=== PATIENT | female | born 1985 | race Caucasian/White ===

== ENCOUNTER 2025-06-18 10:11 | Emergency (ER) | payer SELFPAY ==
[2025-06-18 10:15] VITALS: BP 119/74
--- NOTE | 2025-06-18 10:32 | ED.GENMED ---
History of Present Illness
<Phyllis Segal PA-C - Last Filed: 06/18/25 17:09>
General
Chief Complaint: Back Pain
Source: patient
Exam Limitations: none
Time Seen by Provider: 06/18/25 10:18
History of Present Illness
History of Present Illness:
40yoF with a history of lupus on hydroxychloroquine presenting for evaluation of bilateral flank pain. Patient started to experience UTI symptoms about 2 days ago with urinary frequency and pain after urination. Last night, she developed pain in
both of her flank/lower posterior rib areas. No reported trauma. She has been taking Azo for her urinary symptoms but otherwise has not been taking [id number] medications. No pleuritic pain. She denies any fevers, chills, abdominal pain,
vaginal discharge. No concern for STDs. She denies any history of lupus nephritis, pyelonephritis or resistant UTIs.
Past History
<Phyllis Segal PA-C - Last Filed: 06/18/25 17:09>
Past History
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
ED Past Surgical History: Gynecological (Ovarian cyst removed)
Social History
Tobacco: Former smoker (cigarete smoker now Electronic cig.)
Alcohol: Occasional
Personal: Single
Living: alone
Phy Exam
<Phyllis Segal PA-C - Last Filed: 06/18/25 17:09>
General Physical Exam
General Presentation: well appearing and no apparent distress
General Skin: warm and dry
General Habitus: normal
General Mental: alert
ENT Exam
ENT Exam: normocephalic
Pulmonary Exam
Pulmonary Exam: lungs clear, no respiratory distress, no rales, no crackles, no rhonchi and no wheezing
Gastrointestinal Exam
Gastrointestinal Exam: non tender, soft, non distended and no cva tenderness
Neurological Exam
Neurological Exam: alert
[place] Coma Scale
Eye Opening: Spontaneous
Verbal Response: Oriented
Motor Response: Obeys Commands
GCS Total Score: 15
Musculoskeletal Exam
Musculoskeletal Exam: other (+Tenderness to thoracic region bilaterally. No skin changes.)
Skin Exam
Skin Exam: normal color and warm/dry
Psychiatric Exam
Psychiatric Exam: normal mood/affect
<Rashel Castro PA-C - Last Filed: 06/20/25 06:50>
[place] Coma Scale
GCS Total Score: 15
Course
<Phyllis Segal PA-C - Last Filed: 06/18/25 17:09>
Orders/Labs/Results
Orders:
Orders
06/18/25 10:32
CT Abd/pel Without Iv Or Oral Urgent
Comment:
Reason For Exam: bilateral flank pain
0.9% Sodium Chloride 1000 ml [Nss] 1,000 ml IV BOLUS
Ketorolac [Toradol] 15 mg IV NOW STA
Test Result ONCE
06/18/25 10:40
Complete Blood Count/With Diff Urgent
Comprehensive Metabolic Panel Urgent
HCG, Serum Qualitative Screen Urgent
Urinalysis Reflex To Culture Urgent
Date Specimen was Collected: 06/18/25
Time Specimen was Collected: 10:33
Urine Microscopic Reflex Cult Urgent
Urine Culture Urgent
CHRYSTAL Source: U
Specimen Description:
Date Specimen was Collected: 06/18/25
Time Specimen was Collected: 10:33
Abnormal Lab Results
06/18/25
10:40
Hgb 11.9 L g/dL
(12.0-16.0)
MCHC 31.2 L g/dL
(33.0-37.0)
RDW 14.6 H %
(11.5-14.5)
Abs Immat Gran (auto) 0.1 H 10^3/uL
(0-0.05)
Absolute Neuts (auto) 8.3 H 10^3/uL
(1.4-6.5)
Absolute Monos (auto) 0.7 H 10^3/uL
(0.1-0.6)
Neutrophils % 78.0 H %
(42.2-75.2)
Lymphocytes % 13.4 L %
(20.5-51.1)
BUN 5 L mg/dl
(7-17)
Glucose 100 H mg/dl
(70-99)
Ur Occult Blood Reflex 2+ A
(Negative)
Leukocyte Esterase Rfl 3+ A
(Negative)
Urine RBC 11-15 A /HPF
(0-2)
Urine WBC (Reflex) >100 A /HPF
(0-5)
Urine Bacteria (Reflex) Moderate A
(Negative)
Urine Albumin (Reflex) 1+ A
(Neg - Trace)
06/18/25 10:40
06/18/25 10:40
Vital Signs
Initial and Last Documented VS:
Initial Vital Signs
Temp Pulse Resp BP Pulse Ox
98.4 F 84 16 119/74 100
06/18/25 10:15 06/18/25 10:15 06/18/25 10:15 06/18/25 10:15 06/18/25 10:15
Last Documented Vital Signs
Temp Pulse Resp BP Pulse Ox
98.4 F 84 16 119/74 100
06/18/25 10:15 06/18/25 10:15 06/18/25 10:15 06/18/25 10:15 06/18/25 10:34
Libralt;Rashel Castro PA-C - Last Filed: 06/20/25 06:50>
Orders/Labs/Results
Orders:
Orders
06/18/25 10:32
CT Abd/pel Without Iv Or Oral Urgent
Comment:
Reason For Exam: bilateral flank pain
0.9% Sodium Chloride 1000 ml [Nss] 1,000 ml IV BOLUS
Ketorolac [Toradol] 15 mg IV NOW STA
Test Result ONCE
06/18/25 10:40
Complete Blood Count/With Diff Urgent
Comprehensive Metabolic Panel Urgent
HCG, Serum Qualitative Screen Urgent
Urinalysis Reflex To Culture Urgent
Date Specimen was Collected: 06/18/25
Time Specimen was Collected: 10:33
Urine Microscopic Reflex Cult Urgent
Urine Culture Urgent
CHRYSTAL Source: U
Specimen Description:
Date Specimen was Collected: 06/18/25
Time Specimen was Collected: 10:33
Abnormal Lab Results
06/18/25
10:40
Hgb 11.9 L g/dL
(12.0-16.0)
MCHC 31.2 L g/dL
(33.0-37.0)
RDW 14.6 H %
(11.5-14.5)
Abs Immat Gran (auto) 0.1 H 10^3/uL
(0-0.05)
Absolute Neuts (auto) 8.3 H 10^3/uL
(1.4-6.5)
Absolute Monos (auto) 0.7 H 10^3/uL
(0.1-0.6)
Neutrophils % 78.0 H %
(42.2-75.2)
Lymphocytes % 13.4 L %
(20.5-51.1)
BUN 5 L mg/dl
(7-17)
Glucose 100 H mg/dl
(70-99)
Ur Occult Blood Reflex 2+ A
(Negative)
Leukocyte Esterase Rfl 3+ A
(Negative)
Urine RBC 11-15 A /HPF
(0-2)
Urine WBC (Reflex) >100 A /HPF
(0-5)
Urine Bacteria (Reflex) Moderate A
(Negative)
Urine Albumin (Reflex) 1+ A
(Neg - Trace)
06/18/25 10:40
06/18/25 10:40
Vital Signs
Initial and Last Documented VS:
Initial Vital Signs
Temp Pulse Resp BP Pulse Ox
98.4 F 84 16 119/74 100
06/18/25 10:15 06/18/25 10:15 06/18/25 10:15 06/18/25 10:15 06/18/25 10:15
Last Documented Vital Signs
Temp Pulse Resp BP Pulse Ox
98.4 F 84 16 119/74 100
06/18/25 10:15 06/18/25 10:15 06/18/25 10:15 06/18/25 10:15 06/18/25 10:34
<Phyllis Segal PA-C - Last Filed: 06/18/25 17:09>
MDM/Problems Addressed
Differential Diagnosis Includes:
40yoF here with UTI symptoms x 2 days and bilateral flank pain x 1 day. No f/c. VSS and she is well appearing. There is reproducible thoracic tenderness on exam without CVA tenderness. Differential diagnosis includes: UTI, pyelonephritis,
musculoskeletal pain, less likely kidney stone
Initial ED plan: Check CBC, CMP, UA, and CT abdomen without contrast. IV Toradol and fluid bolus for symptoms.
<Phyllis Segal PA-C - Last Filed: 06/18/25 17:09>
*Pulse Oximetry
SaO2: 100
Oxygen Mode of Delivery: Room air
Patient hypoxic: no
*Critical Care Note
Total Time (30-74mins, 75-104mins- exclusive of procedures): Not Applicable
<Phyllis Segal PA-C - Last Filed: 06/18/25 17:09>
Update Note
Update Note:
UA with >100 WBCs and moderate bacteria consistent with infection. Labs reassuring including normal white count and renal function. No hydronephrosis or ureterolithiasis on CT. Patient stable for discharge. Suspect flank pain is musculoskeletal but
antibiotics will also cover for pyelonephritis. She was started on a course of cefdinir and supportive care discussed. Advised f/u with PCP and ED return precautions reviewed. Patient in agreement with plan and she was discharged in stable
condition.
<Rashel Castro PA-C - Last Filed: 06/20/25 06:50>
Update Note
Update Note:
UA with >100 WBCs and moderate bacteria consistent with infection. Labs reassuring including normal white count and renal function. No hydronephrosis or ureterolithiasis on CT. Patient stable for discharge. Suspect flank pain is musculoskeletal but
antibiotics will also cover for pyelonephritis. She was started on a course of cefdinir and supportive care discussed. Advised f/u with PCP and ED return precautions reviewed. Patient in agreement with plan and she was discharged in stable
condition.
6:50 AM June 20, 2025: Urine culture shows presumptive E. coli. On cefdinir. Sensitivities pending
ED Attending Note
<Phyllis Segal PA-C - Last Filed: 06/18/25 17:09>
-
Portions of this chart may have been created with voice recognition software.� Occasional wrong word or��sound alike� substitutions may have occurred due to the inherent limitations of voice recognition software.
Discharge Plan
Departure
Patient Disposition: Home (Routine Discharge)
Date of Disposition: 06/18/25
Time of Disposition: 12:36
Patient with high blood pressure during this ER visit?: No
Discharge Problem:
Urinary tract infection, Bilateral flank pain
Instructions: Urinary tract infection in adults - ED (DC)
Prescriptions:
New
cefdinir 300 mg capsule
300 mg PO BID Qty: 14 0RF
No Action
hydroxychloroquine 200 MG tablet
200 mg PO DAILY
Diclofenac
25 mg PO BID
Referrals:
[facility] [Provider Group]
NONE,* [Family Provider, Internal Medicine]
Activity Restrictions/Additional Instructions:
Take antibiotics as prescribed. Drink plenty of fluids and hydrate. You may take ibuprofen 400 to 600 mg every 6 hours as needed.
Please follow-up with your family doctor. Return to the ER with any worsening symptoms including fevers or chills.
Interventions
Interventions:
*Risk Screen - Suicide Last Done: 06/18/25 10:15
*Neglect/Abuse Screening Last Done: 06/18/25 10:15
*Nursing Disposition Last Done: 06/18/25 12:41
ED-Musculoskeletal Assessment Last Done: 06/18/25 10:46
Discharge Date and Time
Discharge Date/Time: 06/18/25 12:42
Print Language: PERSIAN
[2025-06-18] MEDS: TORADOL 15 MG IV (10:40)
[2025-06-18] MEDS: NSS 1000 IV (10:40)
[2025-06-18 10:46] VITALS: BMI 22.0
[2025-06-18 10:54] LABS: Urine Character Slightly Cloudy (Clear)
[2025-06-18 10:56] LABS: Hematocrit 38.1 % (37.0-47.0); Hemoglobin 11.9 g/dL (12.0-16.0); Mean Corp Hgb Conc. 31.2 g/dL (33.0-37.0); Mean Corpuscular Volume 86.8 fL (81.0-99.0); Nucleated Red Blood Cells % 0 %; Platelet Count 383 10^3/uL (130-400); Red Cell Dist. Width 14.6 % (11.5-14.5)
[2025-06-18 11:14] LABS: HCG, Serum Qualitative Screen Negative
[2025-06-18 11:32] LABS: ALT (SGPT) 15 U/L (0-35); AST (SGOT) 19 U/L (14-36); Albumin 4.0 g/dl (3.5-5.0); Alkaline Phosphatase 66 U/L (38-126); Blood Urea Nitrogen 5 mg/dl (7-17); Calcium 9.4 mg/dl (8.4-10.2); Carbon Dioxide 27 mmol/L (22-30); Chloride 102 mmol/L (98-107); Estimated Creatinine Clearance 108 ml/min; Glucose 100 mg/dl (70-99); Potassium 3.5 mmol/L (3.5-5.1); Sodium 136 mmol/L (135-145); Total Protein 7.4 g/dl (6.3-8.2); eGFR > 60.00
[2025-06-18 12:21] LABS: Urine White Cell >100 /HPF (0-5)
== END 2025-06-18 12:42 | disposition home or self-care (01) ==
LOC: EMR 10:11
PROVIDERS: Physician Assistant; EMERGENCY PHYSICIAN Emergency Medicine
DX: N39.0 Urinary tract infection, site not specified (principal); R10.A3 Flank pain, bilateral; M32.9 Systemic lupus erythematosus, unspecified; Z87.891 Personal history of nicotine dependence; Z91.148 Patient's other noncompliance with medication regimen for other reason
CPT/HCPCS: 99284; 96374; 96361; 74176; 80053; 81003; 81015; 84703; 85025; 87077; 87086; 87186